=== PATIENT | female | born 1955 | race African-American/Black ===

== ENCOUNTER 2019-12-22 07:39 | Day surgery (SDC) | payer OTHER ==
[2019-12-20 17:36] VITALS: BMI 31.9
--- OUTSIDE RECORDS SUMMARY | 2019-12-22 07:42 | XMS ---
:1955 Author Organization [facility] Support Name Relationship Address Phone RE Unavailable Unavailable Unavailable DISABLED Unavailable Unavailable Unavailable MARQUIS MCCLURE MOTHER [address] [place] [address] Re-disclosure Warning The records that you are about to access may contain information from federally- assisted alcohol or drug abuse programs. If such information is present, then the following federally mandated warning applies: This information has been disclosed to you from records protected by federal confidentiality rules (42 CFR part 2). The federal rules prohibit you from making any further disclosure of this information unless further disclosure is expressly permitted by the written consent of the person to whom it pertains or as otherwise permitted by 42 CFR part 2. A general authorization for the release of medical or other information is NOT sufficient for this purpose. The Federal rules restrict any use of the information to criminally investigate or prosecute any alcohol or drug abuse patient.The records that you are about to access may contain highly sensitive health information, the redisclosure of which is protected by Article 27-F of the [facility] Public Health law. If you continue you may haveaccess to information: Regarding HIV / AIDS; Provided by facilities licensed or operated by the [facility] Office of Mental Health; or Provided by the [facility] Office for People With Developmental Disabilities. If such information is present, then the following [facility] mandated warning applies: This information has been disclosed to you from confidential records which are protected by state law. State law prohibits you from making any further disclosure of this information without the specific written consent of the person to whom it pertains, or as otherwise permitted by law. Any unauthorized further disclosure in violation of state law may result in a fine or half-way sentence or both. A general authorization for the release of medical or other information is NOT sufficient authorization for further disclosure. Encounters Encounter Providers Location Date Indications Data Source(s ) Outpatient 06/14/2019 11:36:00 SEE SCRIPT [facility] AM EDT SEE SCRIPT Outpatient 04/16/2019 01:44:00 PM TOXICOLOGY FO R OXYCODONE [facility] EST TOXICOLOGY FOR OXYCODONE Outpatient 04/07/2019 12:54:00 PM CHRONIC PAIN ON [facility] EST HYDROCODINE CHRONIC PAIN ON HYDROCODINE Insurance Providers Payer name Policy type Policy ID Covered Covered democrat's Policy P delfino / Coverage democrat ID relationship to Hardy Inf ormation type hardy HIP MEDICARE [id number] SP [id number] [employer] [id number] PT [id number] WORKERS [id number] PT [id number] COMPENSATION HIP MCR [id number] PT [id number] [id number] PT [id number] [id number] PT [id number] [employer] [facility] WORKERS [id number] PT [id number] COMP BRD Problems, Conditions, and Diagnoses Code Display Name Description Problem Type Effective Dates Data Source(s) G89.4 Chronic pain syndrome G89.4 Diagnosis 06/14/2019 [facility] 11:36:00 AM EDT Hospital Z02.89 Encounter for other Z02.89 Diagnosis 06/14/2019 [facility] 11:36:00 AM EDT Hospi tash examinations Results ID Date Data Source [id number] 12/18/2019 12:00:00 PM EDT [facility] Name Value Range Interpretation Description Data Sup porting Code Source(s) Document(s ) SARS [facility] coronavirus 2 RNA This lab was ordered by SUSHIL sorenson [facility] and reported by [facility]. ID Date Data Source [id number] 07/19/2019 12:00:00 AM EDT [facility] Name Value Range Interpretation Code Description Data Allie rce(s) Supporting Document(s ) 2019-nCoV [facility] RNA XXX RUTHIE+probe- Imp [facility] reported by [employer] Procedure
[2019-12-22] MEDS ORDERED: PROPOFOL 20 ML ONE ×3 (07:53)
[2019-12-22] MEDS ORDERED: LIDOCAINE HCL/PF 2% SDV 5ML VIAL ONE (07:53)
[2019-12-22 09:38] VITALS: TEMP 97.4
[2019-12-22 09:51] VITALS: BP 112/69; PULSE 61
== END 2019-12-22 10:00 | disposition home or self-care (01) ==
LOC: FASU-ENDO 07:39
PROVIDERS: ATTEND Internal Medicine Gastroenterology
PROC: 0DJD8ZZ Inspection of Lower Intestinal Tract, Via Natural or Artificial Opening Endoscopic (ICD-10-PCS; principal; 2019-12-22 09:03)
DX: Z12.11 Encounter for screening for malignant neoplasm of colon (principal); K57.30 Diverticulosis of large intestine without perforation or abscess without bleeding